=== PATIENT | female | born 1975 | race Two or more races ===

== ENCOUNTER 2022-01-30 20:51 | Emergency (ER) | payer OTHER ==
[~2022-01-30] VITALS: Ht 170.2 cm; Wt 77.6 kg
[2022-01-30] MEDS ORDERED: LASIX20 MG (21:05)
[2022-01-30] MEDS ORDERED: ENALAPRIL MALEA10 MG (21:06)
[2022-01-31] MEDS ORDERED: KETO10TA2 PO ×2 (07:37→07:38)
[2022-01-31] MEDS ORDERED: CEPHALEXIN500 MG PO (07:37)
== END 2022-01-31 08:22 ==
LOC: ER 20:51
DX: N39.0 Urinary tract infection, site not specified (principal); R10.84 Generalized abdominal pain